=== PATIENT | male | born 1960 | race Caucasian/White ===

== ENCOUNTER 2022-06-28 13:21 | Outpatient (CLI) | payer OTHER, SELFPAY ==
--- NOTE | ~2022-06-28 | PE_ITS ---
EXAMINATION: PET skull to mid thigh DATE: 06/28/2022 16:33 INDICATION: Abnormal findings on outside hospital chest CT TECHNIQUE: Blood glucose level was 105 mg/dL. 10.956 mCi of 18-fluorodeoxyglucose (18-FDG) was admini stered i.v. Low dose computed tomography (CT) images were acquired from the base of the brain to the proximal thighs for attenuation correction and anatomic localization. Positron emission tomography (P ET) images were acquired in the same distribution beginning 65 minutes after injection. The dose-jesús th product (DLP) was 829.98 mGy-cm. COMPARISON: None FINDINGS: Head/neck: No abnormal FDG uptake is identified. Mild FDG uptake in the oral cavity and vocal cords w ithout suspicious CT correlate is likely physiologic. Chest: No abnormal FDG uptake is identified. There is a 7 mm nodule of the right upper lobe without a ssociated FDG activity. There is a 5 mm nodule of the right middle lobe without associated FDG activi ty. There is a 7 mm nodule in the medial aspect of the left upper lobe without associated FDG uptake. There is moderate emphysema. There are patchy airspace opacities of the lower lobes which could refl ect atelectasis versus resolving pneumonia. Calcified pulmonary nodules and calcified right hilar lym ph nodes are consistent with old granulomatous disease. No pathologically enlarged thoracic lymph no grover are identified. The heart size is normal. Calcified coronary artery atherosclerosis is noted. The re is mild bilateral gynecomastia. Abdomen/pelvis/proximal thighs: Physiologic FDG activity is present in the bowel and urinary tract. N o abnormal FDG uptake is identified. Punctate calcifications in an otherwise normal spleen likely rep resent healed granulomatous disease. The gallbladder is surgically absent. Punctate calcification of the pancreas is consistent with chronic pancreatitis. The liver, adrenal glands, and kidneys are norm al. No pathologically enlarged abdominal or pelvic lymph nodes are identified. There is calcified ath erosclerosis of the aorta and many of the other arteries. There is no free intraperitoneal gas or swati dence of bowel obstruction. Colonic diverticulosis is present without evidence of diverticulitis. The re is mild wall thickening of the urinary bladder which could reflect cystitis or chronic outlet obst ruction. Musculoskeletal: No abnormal FDG uptake is identified. There is moderate cervical spondylosis and sev ere lumbar spondylosis at L5-S1. IMPRESSION: 1. Lung nodules as detailed above without detectable FDG activity. Absence of activity could be due t o their small size. Comparison with prior imaging is recommended for determination of appropriate fol low-up interval. At a minimum, follow-up in six months is recommended. Reviewed, dictated and finalized at location L. IMPRESSION: 1. Lung nodules as detailed above without detectable FDG activity. Absence of a ctivity could be due to their small size. Comparison with prior imaging is arvin mmended for determination of appropriate follow-up interval. At a minimum, foll ow-up in six months is recommended.
[2022-06-28 13:53] LABS: Glucose Point of Care 105 mg/dl (65-105)
== END 2022-06-28 13:22 | disposition home or self-care (01) ==
PROVIDERS: PCP Family Medicine; Visit Provider Family Medicine
DX: R93.89 Abnormal findings on diagnostic imaging of other specified body structures (principal)
CPT/HCPCS: 78815; A9552

== ENCOUNTER 2023-01-25 07:34 | Outpatient (CLI) | payer OTHER, SELFPAY ==
--- NOTE | ~2023-01-25 | CT_ITS ---
EXAMINATION: CT diagnostic chest wo con DATE: 01/25/2023 07:53 INDICATION: Follow-up pulmonary nodules TECHNIQUE: Computed tomography (CT) of the chest was performed without intravenous contrast. The dose -length product was 247.57 mGy-cm. Automated exposure control and iterative reconstruction technique were employed. COMPARISON: Pet/CT scan dated 06/28/2022 FINDINGS: There is emphysema. There are 2 adjacent right upper lobe nodules measuring 9 and 7 mm resp ectively, the smaller of which is new. There is adjacent scarring. There is a 5 mm right middle lobe nodule, unchanged. There is a partially calcified left upper lobe nodule abutting the pleural surface measuring 7 mm, unchanged. There are a few calcified granulomas in the lungs. There is a 3 mm lingul ar nodule. No pneumothorax. No focal airspace consolidation. No endobronchial lesions. There are chol ecystectomy clips. There are calcified granulomas in the spleen. There are cholecystectomy clips. IMPRESSION: 1. Bilateral pulmonary nodules with growing right upper lobe nodule measuring 9 mm, suspicious for ma lignancy. Consider follow-up low dose CT chest or pet/CT follow-up in 3 months. Reviewed, dictated and finalized at location B. T AND TABLE EDGER IMPRESSION: 1. Bilateral pulmonary nodules with growing right upper lobe nodule measuring 9 mm, suspicious for malignancy. Consider follow-up low dose CT chest or pet/CT follow-up in 3 months.
== END 2023-01-25 07:35 | disposition home or self-care (01) ==
PROVIDERS: PCP Family Medicine; Visit Provider Family Medicine
DX: R93.89 Abnormal findings on diagnostic imaging of other specified body structures (principal); R91.8 Other nonspecific abnormal finding of lung field
CPT/HCPCS: 71250

== ENCOUNTER 2023-03-05 12:19 | Outpatient (CLI) | payer OTHER, SELFPAY ==
--- NOTE | ~2023-03-05 | PE_ITS ---
EXAMINATION: PET skull to mid thigh DATE: 03/05/2023 14:47 INDICATION: Neoplasm of uncertain behavior of lung. TECHNIQUE: Blood glucose level was 104 mg/dL. 10.267 mCi of 18-fluorodeoxyglucose (18-FDG) was admini stered i.v. Low dose computed tomography (CT) images were acquired from the base of the brain to the proximal thighs for attenuation correction and anatomic localization. Automated exposure control was employed. Dose-length product (DLP) was 547 mGy-cm. Positron emission tomography (PET) images were ac quired in the same distribution. COMPARISON: PET/CT 06/28/2022, chest CT 01/25/2023 FINDINGS: Head/neck: There are no pathologically enlarged lymph nodes. Chest: There is mild emphysema. There is an 8 mm nodule in right upper lobe without increased activit y, stable from 06/28/22. There is a nearby 6 mm nodule in right upper lobe with maximum SUV of 3.6, wo rsened from 06/28/22. There is mild atelectasis bilaterally. There is a 6 mm nodule at minor fissure w ithout increased activity, stable from 06/20/2022. Calcified right lung nodules and calcified right hi lar and mediastinal lymph nodes are consistent with old granulomatous disease. No pleural effusion. T he heart size is normal. There are coronary artery calcifications. No pericardial effusion. There is mild bilateral gynecomastia. Abdomen/pelvis/proximal thighs: Calcifications in the liver and spleen are consistent with old granul omatous disease. There are changes of cholecystectomy. The pancreas, adrenal glands, and kidneys are normal. There are no dilated loops of bowel. There is diverticulosis of the colon without evidence of diverticulitis. There are no pathologically enlarged lymph nodes. There is no free intraperitoneal f luid. There is no osseous malignancy. IMPRESSION: 1. 6 mm right upper lobe pulmonary nodule with increased activity, worsened from 06/28/2022. This find ing may be infection or malignancy. Noncontrast low-dose chest CT is recommended in 3-6 months. Reviewed, dictated and finalized at location A. IMPRESSION: 1. 6 mm right upper lobe pulmonary nodule with increased activity, worsened fro m 06/28/2022. This finding may be infection or malignancy. Noncontrast low-dose chest CT is recommended in 3-6 months.
[2023-03-05 12:40] LABS: Glucose Point of Care 104 mg/dl (65-105)
== END 2023-03-05 12:20 | disposition home or self-care (01) ==
PROVIDERS: PCP Family Medicine; Visit Provider Family Medicine
DX: D38.1 Neoplasm of uncertain behavior of trachea, bronchus and lung (principal); R91.1 Solitary pulmonary nodule
CPT/HCPCS: 78815; A9552